=== PATIENT | female | born 2005 | race Caucasian/White ===

== ENCOUNTER 2024-03-14 14:09 | Emergency (ER) | payer BC ==
[~2024-03-14] VITALS: Ht 175.3 cm; Wt 83.9 kg
[2024-03-14] MEDS ORDERED: predniSONE 10 MG TABLET ONE (14:28)
[2024-03-14] MEDS: ALBUTEROL SULFATE 2.5 MG/3 ML NEBU NEB ONE (14:30)
[2024-03-14] MEDS: IPRATROPIUM BROMIDE 0.5 MG/2.5 ML NEBU NEB ONE (14:30)
[2024-03-14] MEDS: predniSONE 10 MG TABLET PO ONE (14:31)
[2024-03-14] MEDS ORDERED: IPRATROPIUM BROMIDE 0.5 MG/2.5 ML NEBU ONE (14:31)
[2024-03-14] MEDS ORDERED: ALBUTEROL SULFATE 2.5 MG/3 ML NEBU ONE (14:31)
[2024-03-14 14:33] VITALS: O2SAT 99
[2024-03-14 15:38] VITALS: O2SAT 100
[2024-03-14] MEDS ORDERED: PRED50TA PO (16:41)
[2024-03-14] MEDS ORDERED: ALBU8.5H8 INH (16:41)
[2024-03-14 16:49] VITALS: BP 111/59; TEMP 98; O2SAT 100
== END 2024-03-14 16:51 | disposition home or self-care (01) ==
LOC: ER 14:09
DX: J45.901 Unspecified asthma with (acute) exacerbation (principal); Z79.52 Long term (current) use of systemic steroids
CPT/HCPCS: 99285; 71045; 94644; J7512; 94760; A4663; J3590

== ENCOUNTER 2025-01-20 15:15 | Emergency (ER) | payer BC ==
[~2025-01-20 15:15] MED LIST: ALBU8.5H8 INH; PRED50TA PO
== END 2025-01-20 16:19 | disposition left against medical advice (07) ==
LOC: ER 15:15
DX: M54.2 Cervicalgia (principal); Z53.21 Procedure and treatment not carried out due to patient leaving prior to being seen by health care provider